=== PATIENT | male | born 1980 | race African-American/Black ===

== ENCOUNTER 2021-04-27 16:09 | Emergency (ER) | payer MEDICAID ==
[~2021-04-27] VITALS: Ht 188 cm; Wt 86.0 kg
[2021-04-27 16:23] VITALS: BP 154/76
== END 2021-04-27 18:38 | disposition home or self-care (01) ==
LOC: ER 16:09
DX: S02.2XXA Fracture of nasal bones, initial encounter for closed fracture (principal); H11.33 Conjunctival hemorrhage, bilateral; Y04.0XXA Assault by unarmed brawl or fight, initial encounter; Y93.89 Activity, other specified; Y92.89 Other specified places as the place of occurrence of the external cause; Y99.8 Other external cause status
CPT/HCPCS: 70486; 99285